=== PATIENT | female | born 1945 | race African-American/Black ===

== ENCOUNTER 2025-03-25 14:42 | Outpatient (CLI) | payer MEDICARE, SELFPAY ==
--- NOTE | ~2025-03-25 | DEXA_ITS ---
Bone Density Report Name: ROHAN MASTERS Age: 80 Sex: Female Ethnicity: Black Date of : 1945 Indication: postmenopausal; screening for osteoporosis; hysterectomy; Referring Provider: Judith Justice Study: Bone densitometry was performed. Exam Date: March 25, 2025 Accession number: [id number] Bone Density: Region BMD T-score Z-score Classification AP Spine(L1, L2, L3) 1.087 0.6 2.6 Normal Femoral Neck (Left) 0.778 -0.6 0.6 Normal Total Hip (Left) 1.015 0.6 1.5 Normal Femoral Neck (Right) 0.905 0.5 1.5 Normal Total Hip (Right) 1.093 1.2 2.0 Normal Total Hip Mean 1.054 0.9 1.8 Normal World Health Organization criteria for BMD impression classify patients as: Normal (T-score at or above -1.0), Osteopenia (T-score between -1.0 and -2.5), or Osteoporosis (T-score at or below -2.5). 10-year Fracture Risk: FRAX not reported because: All T-scores for Spine Total, Hip Total, Femoral Neck at or above -1.0 Clinical Information Provided by Patient: Has used the following medications: Vitamin D Has the following medical conditions: Hysterectomy Patient maximum height was 64.5 Menopause Age: 37 No regular weight bearing exercise Drinks caffeinated beverages Onset of menses at age 12 Number of children 2 Impression: The patient has normal bone mass. Discussion: BONE DENSITY IS ABOVE THE MINIMUM DESIRABLE LEVEL AT ALL SKELETAL SITES TESTED. This patient?s bone mineral density is above the minimum desirable level (T-score -1.0 or better) at all sites measured. The patient should follow a healthful lifestyle (good nutrition with adequate calcium and vitamin D, and appropriate weight-bearing exercise). Follow-Up: Consider repeating this study in 5 years or sooner if there is some new clinical indication. Reported by: JOSE CRUZ on 03/25/2025 3:16:00 PM. Reviewed, dictated and finalized at location A.
== END 2025-03-25 14:43 | disposition home or self-care (01) ==
LOC: MICIMG 14:43
PROVIDERS: PCP Family Medicine; Visit Provider Internal Medicine Endocrinology, Diabetes & Metabolism
DX: M54.50 Low back pain, unspecified (principal); G89.29 Other chronic pain; Z78.0 Asymptomatic menopausal state
CPT/HCPCS: 77080